=== PATIENT | female | born 1960 | race Caucasian/White ===

== ENCOUNTER → 2017-04-27 | Day surgery (SDC) | payer BC ==
[2017-04-20 10:54] VITALS: BMI 41.0
[2017-04-21 08:58] VITALS: Ht 172.7 cm; Wt 125.0 kg
--- NOTE | 2017-04-21 09:12 | PAT Medication Instructions ---
Service Date Apr 21, 2017. Current Home Medication List Ascorbic Acid (Vitamin C), 1 TAB PO QAM B-Complex Vitamins (Vitamin B Complex), 1 TAB PO QAM Furosemide (Lasix), 20 MG PO QAM Taxpsujifbn-Tyexhvpegeb-Fzt C- (Glucosamine Chondroitin), 1 TAB PO QAM Levothyroxine Sodium (Synthroid), 100 MCG PO QAM Multiple Vitamin (Multivitamin), 1 TAB PO QAM Potassium Chloride (Klor-Con Ext Rel), 8 MEQ PO Q2D Medication Instructions For Your Scheduled Surgery - Hold the following medications starting 04/22/2017: Tolwskmlytk-Xlzccmpqiso-Xjg C- (Glucosamine Chondroitin), 1 TAB PO QAM - Hold the following medications the morning of surgery: Potassium Chloride (Klor-Con Ext Rel), 8 MEQ PO Q2D Multiple Vitamin (Multivitamin), 1 TAB PO QAM Furosemide (Lasix), 20 MG PO QAM Ascorbic Acid (Vitamin C), 1 TAB PO QAM B-Complex Vitamins (Vitamin B Complex), 1 TAB PO QAM - Take the following medications the morning of surgery with a sip of water: Levothyroxine Sodium (Synthroid), 100 MCG PO QAM If you have any questions please call us at [phone] or [phone] or [phone]
[2017-04-21 10:10] LABS: HEMATOCRIT 43.7 % (37-47); MEAN CELL VOLUME 91.2 fL (80-100); MEAN CORPUSCULAR HEMOGLOBIN 30.1 pg (25-34); MEAN PLATELET VOLUME 11.4 fL (7.4-10.4); PLATELET COUNT 247 K/uL (130-400); RED BLOOD COUNT 4.79 M/uL (4.2-5.4); WHITE BLOOD COUNT 5.98 K/uL (4.8-10.8)
[2017-04-21 11:27] LABS: BUN/CREATININE RATIO 14.9 (10-20); CREATININE 0.96 mg/dl (0.60-1.20); POTASSIUM 4.1 mmol/L (3.5-5.1)
[2017-04-21 11:33] LABS: CALCIUM 9.2 mg/dl (8.5-10.1)
[~2017-04-27] VITALS: Ht 172.7 cm; Wt 125.0 kg
[~2017-04-27] MED LIST: ASCO500T3 PO; ATROPINE SULFATE 0.1 MG/ML 5ML SYR IV PRN; B-COTAB18 PO; CEFAZOLIN 3000 MG/65 ML D5W IV SCH; DEXAMETHASONE SOD INJ 4 MG/ML VIAL ONE; EpINEphrine INJ 1MG/ML AMP 1 MG/ML AMP ONE; FENTANYL CITRATE INJ 50 MCG/1 ML 2 ML VIAL IV PRN; FENTANYL CITRATE INJ 50 MCG/1 ML 2 ML VIAL ONE; FRS/40 PO; GLUCTAB7 PO; HYDR-5688 PO; HYDROCODONE/ACETAMOPHEN 5/325MG TAB PO PRN; KETOROLAC TROMETHAMINE 30 MG/ML VIAL IV. PRN; KETOROLAC TROMETHAMINE 30 MG/ML VIAL ONE; LABETALOL HCL IV 5 MG/ML 20ML IV PRN; LACTATED RINGER'S 1000ML 1,000 ML IV SCH; LEVO100T PO; LIDOCAINE HCL 2% 2 ML VIAL (20MG/ML) ONE; MIDAZOLAM HCL 1 MG/ML 2ML VIAL ONE; MULTTAB58 PO; ONDANSETRON INJ 2 MG/ML 2 ML VIAL IV PRN; ONDANSETRON INJ 2 MG/ML 2 ML VIAL ONE; POTA8CAP6 PO; PROMETHAZINE HCL INJ 6.25 MG in SODIUM CHLORIDE 0.9% 50ML 50 ML IV PRN; PROPOFOL IV EMULSION 10 MG/ML 20 ML VIAL IV ONE; ROPIVACAINE 0.5% 5 MG/ML 30 ML VIAL ONE; SODIUM CHLORIDE 0.9% 1000ML 1,000 ML IV SCH
--- NOTE | 2017-04-27 06:55 | History & Physical Bridge - [place] ---
H&P Re-Evaluation Bridge Note: I have examined the patient, reviewed the History & Physical and in the interval since the performance of the History & Physical I have noted the following changes of clinical significance: No changes noted
--- NOTE | 2017-04-27 08:00 | Discharge Instructions-SurgCtr ---
Discharge Instructions Date of Service Apr 27, 2017. Visit Reason for Visit: Left Knee Acute Medial Meniscal Tear, Pain Discharge Discharge Diagnosis / Problem: SAME ABOVE Discharge Goals Goal(s): Decrease discomfort, Improve function Activity Recommendations Activity Limitations: as noted below Lifting Limitations: gradually increase as tolerated Exercise/Sports Limitations: gradually increase as tolerated Anesthesia . Post Anesthesia Instructions: If you have had General Anesthesia or IV Sedation: * Do not drive today. * Resume driving when surgeon permits. * Do not make important decisions or sign legal documents today. * Call surgeon for: 1. Temperature elevations greater than 101 degrees F. 2. Uncontrollable pain. 3. Excessive bleeding. 4. Persistent nausea and vomiting. 5. Medication intolerance (nausea, vomiting or rash). * For nausea and vomiting use only clear liquids such as: tea, soda, bouillon until nausea subsides, then gradually increase diet as tolerated. * If you have any concerns or questions, call your surgeon's office. If physician is unavailable and it is an emergency, call 911 or go to the nearest emergency room. . Instructions / Follow-Up Instructions / Follow-Up MEDICATIONS: * Resume previous medications unless instructed otherwise by your surgeon. * Always take pain medication on a full stomach or with food to avoid upset stomach. * Do not drink alcohol or drive while taking narcotics. * Ibuprofen or Tylenol may be taken if narcotic not needed. SPECIAL CARE INSTRUCTIONS: __ None _X_ Keep extremity elevated and iced x 48 hours; apply ice 20-30 minutes 8-10 times/day. May remove at night. _X_ Crutches _X_ May discard when able __ Brace/Post-op shoe __ 24 hrs/day __ Remove at night _X_ Dressing __ Maintain until seen in office, may shower with plastic over site _X_ Remove dressings in 24-48 hours and then may shower _X_ Cover incisions with band-aids after showering __ Do not remove steri-strips Call physician if chills or temperature rises above 102 degrees or pain unrelieved by prescribed pain medications. Office [phone] Diet Recommendations Home Diet: no limitations Fluid Restriction: None Procedures Procedures Performed: Left Knee Arthroscopy, Extensive Debridement, Chondroplasty Pending Studies Studies pending at discharge: no Work Instructions Return To Work: 2 days (OR WHEN PAIN ALLOWS ) Medical Emergencies . Who to Call and When: Medical Emergencies: If at any time you feel your situation is an emergency, please call 911 immediately. . Non-Emergent Contact Non-Emergency issues call your: Primary Care Provider Call Non-Emergent contact if: you have a fever, temperature is above 101.5 . . "Provider Documentation" section prepared by Nixon Flannery. .
--- NOTE | 2017-04-27 08:42 | OPERATIVE REPORT ---
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 POSTOPERATIVE DIAGNOSIS: Intact meniscus with large 1.5-cm area of delaminated cartilage off the distal medial femoral condyle. PROCEDURE: Left knee diagnostic arthroscopy with chondroplasty. SURGEON: Dr. David Prabhakar. IT SERVICE TECHNICIAN: Gary Flannery PA-C, whose assistance was necessary for positioning of the knee and helping with instrumentation. ANESTHESIA: General. COMPLICATIONS: None. CONDITION: Stable to PACU. INDICATIONS: Jo Ann is a pleasant 56-year-old female whom I have been treating for medial-sided left knee pain. After failing extensive conservative treatment, she got an MRI. The MRI showed some chondromalacia off the distal medial femoral condyle and possible medial meniscal tear. She elected to undergo arthroscopy. DESCRIPTION OF PROCEDURE: On 04/27/2017, she arrived at [facility] for the above procedure. She was seen in the preoperative holding area and the operative extremity was identified and signed. She was given a preoperative antibiotic, taken back to the operating room, laid on the table in the supine position and put under general anesthesia. The left knee was then prepped and draped in sterile fashion. Time-out was done and the patient and operative extremity was properly identified. A scope was introduced into the lateral parapatellar portal. Diagnostic arthroscopy showed no loose bodies in the suprapatellar pouch. There was no arthritis in the patellofemoral region. The scope was then brought into the medial compartment. A medial parapatellar portal was made under direct visualization. There was a large area about 1.5 cm in diameter of delaminated cartilage off the weightbearing surface of the distal medial femoral condyle. This was probed extensively and I did not feel that there was any subchondral bone attached to the delaminated portion of cartilage. The medial meniscus was probed and intact. The scope was then brought into the lateral compartment. The lateral compartment was pristine without any cartilage damage or meniscal damage. ACL and PCL were intact. I then looked back in the medial compartment. A decision was made that the unstable delaminated cartilage was a source for her pain. I then removed the unstable cartilage lesion. There was still some tissue on the subchondral bone, so I decided not to remove the tissue and microfracture. Multiple pictures were taken. Arthroscopic instruments were removed from the knee. Portal sites were closed with 3-0 nylon. The knee was then injected with 30 mL of ropivacaine and Toradol. She was then placed in a soft compressive dressing, extubated and taken to the postanesthesia care unit in stable condition. She tolerated the procedure well. I attest to the content of the Intraoperative Record and any orders documented therein. Any exceptions are noted below. MISSY
[2017-04-27 09:05] VITALS: BP 144/77; PULSE 50; TEMP 36.4; O2SAT 98
--- NOTE | 2017-04-27 09:17 | Anesthesia Progress Nt - [facility] ---
Anesthesia Post Op Note Date & Time Apr 27, 2017 at 09:17 Vital Signs Pain Intensity: 0 Vital Signs Past 12 Hours Date Time Temp Pulse Resp B/P (MAP) Pulse Ox O2 Delivery O2 Flow Rate FiO2 04/27/17 09:05 50 16 144/77 (99) 98 Room Air 04/27/17 08:45 54 16 161/99 (119) 99 Room Air 04/27/17 08:36 131/85 04/27/17 08:35 55 18 04/27/17 08:35 53 18 97 04/27/17 08:34 137/89 04/27/17 08:33 55 15 96 04/27/17 08:33 55 15 04/27/17 08:30 128/101 04/27/17 08:28 50 16 98 04/27/17 08:28 50 16 04/27/17 08:27 36.4 56 16 143/84 96 Room Air 04/27/17 08:26 143/84 04/27/17 08:23 54 13 96 04/27/17 08:23 54 13 04/27/17 08:20 143/88 04/27/17 08:18 56 14 04/27/17 08:18 54 14 98 04/27/17 08:15 142/80 04/27/17 08:13 52 19 100 04/27/17 08:13 51 19 04/27/17 08:11 136/82 04/27/17 08:08 54 14 04/27/17 08:08 53 14 100 04/27/17 08:07 55 12 04/27/17 08:07 55 12 99 04/27/17 08:05 135/79 04/27/17 08:02 54 21 04/27/17 08:02 54 21 98 04/27/17 08:00 134/82 04/27/17 07:59 134/82 04/27/17 07:58 138/81 04/27/17 07:57 36.2 71 16 138/81 98 Diffusion Mask 04/27/17 07:57 67 95 04/27/17 07:57 67 04/27/17 06:29 36.7 60 20 128/87 (101) 98 Room Air Notes Mental Status: alert / awake / arousable, participated in evaluation Pt Amnestic to Procedure: Yes Nausea / Vomiting: adequately controlled Pain: adequately controlled Airway Patency, RR, SpO2: stable & adequate BP & HR: stable & adequate Hydration State: stable & adequate Anesthetic Complications: no major complications apparent
--- NOTE | 2017-04-27 15:37 | [facility] Post Operative Brief Note ---
Immediate Operative Summary Operative Date Apr 27, 2017. Pre-Operative Diagnosis Left Knee Medial Meniscus Tear Post-Operative Diagnosis Chondromalacia Procedure(s) Performed Left Knee Arthroscopy, Extensive Debridement, Chondroplasty Surgeon Dr. Prabhakar Frame Maker Surgeon(s) Sandra Flannery PA-C Estimated Blood Loss 0 mL Findings as above Specimens None Complication(s) None Disposition Recovery Room / PACU
== END | disposition home or self-care (01) ==
LOC: X.SURG 04-21 08:41
PROVIDERS: ATTEND Orthopaedic Surgery
DX: M94.262 Chondromalacia, left knee (principal); M94.8X8 Other specified disorders of cartilage, other site